=== PATIENT | male | born 1995 | race Asian ===

== ENCOUNTER 2017-01-27 20:33 | Emergency (ER) | payer OTHER ==
[~2017-01-27] VITALS: Ht 162.6 cm; Wt 62.5 kg
[2017-01-27 20:35] VITALS: BP 131/90
== END 2017-01-27 22:17 | disposition home or self-care (01) ==
LOC: ED 22:00
DX: H60.92 Unspecified otitis externa, left ear (principal)
CPT/HCPCS: 99283